=== PATIENT | male | born 1995 | race African-American/Black ===

== ENCOUNTER 2018-04-10 12:14 | Emergency (ER) | payer OTHER ==
[2018-04-10 12:19] VITALS: BMI 26.5
--- NOTE | 2018-04-10 12:47 | PDOC ---
History of Present Illness - History of Present Illness Initial Comments: 22 year old male with no PMH presenting with chest pain since yesterday evening. Describes the chest pain as left sided pressure , 4/10 in severity, non -pleuritic, non-exertional, non radiating, and worse with laying down. States that he had this 04/10/18 13:39 <IsaakAnthonyiris - Last Filed: 04/10/18 13:25> <Bert Garcia - Last Filed: 04/10/18 15:46> - General Chief Complaint: Shortness of Breath Stated Complaint: SOB Time Seen by Provider: 04/10/18 12:47 Past History - Past Medical History COPD: No - Suicide/Smoking/Psychosocial Hx Smoking History: Never smoked <Shwetha Mulligan - Last Filed: 04/10/18 13:25> <Bert Garcia - Last Filed: 04/10/18 15:46> - Past Medical History Allergies/Adverse Reactions: Allergies Allergy/AdvReac Type Severity Reaction Status Date / Time No Known Allergies Allergy Verified 04/10/18 12:19 *Physical Exam - Vital Signs Last Vital Signs Temp Pulse Resp BP Pulse Ox 98.3 F 74 18 128/76 99 04/10/18 12:16 04/10/18 12:16 04/10/18 12:16 04/10/18 12:16 04/10/18 12:16 <IsaakAnthonyiris - Last Filed: 04/10/18 13:25> - Vital Signs Last Vital Signs Temp Pulse Resp BP Pulse Ox 98.3 F 74 18 128/76 100 04/10/18 12:16 04/10/18 12:16 04/10/18 12:16 04/10/18 12:16 04/10/18 13:15 <Bert Garcia - Last Filed: 04/10/18 15:46> ED Treatment Course - LABORATORY CBC & Chemistry Diagram: 04/10/18 13:15 04/10/18 13:15 - ADDITIONAL ORDERS Additional order review: Laboratory Results 04/10/18 13:15 Sodium 141 Potassium 4.1 Chloride 107 Carbon Dioxide 27 Anion Gap 7 L BUN 13 Creatinine 1.2 Creat Clearance w eGFR > 60 Random Glucose 81 Calcium 9.0 Total Bilirubin 0.5 AST 39 H ALT 31 Alkaline Phosphatase 88 Creatine Kinase 840 H Creatine Kinase Index 0.0 CK-MB (CK-2) 0.80 Troponin I < 0.02 Total Protein 7.1 Albumin 4.0 04/10/18 13:15 RBC 5.64 H MCV 84.2 MCHC 33.8 RDW 13.2 MPV 9.8 Neutrophils % 69.0 Lymphocytes % 23.6 Monocytes % 5.9 Eosinophils % 0.8 Basophils % 0.7 <Bert Garcia - Last Filed: 04/10/18 15:46> *DC/Admit/Observation/Transfer <Shwetha Mulligan - Last Filed: 04/10/18 13:25> <Bert Garcia - Last Filed: 04/10/18 15:46> Diagnosis at time of Disposition: Atypical chest pain - Discharge Dispostion Disposition: HOME - Referrals Referrals: ON STAFF,NOT [Primary Care Provider] - - Patient Instructions Printed Discharge Instructions: DI for Atypical Chest Pain Additional Instructions: Follow up with your primary care doctor within 1 week. You may need a referral for a messaging architect for further work up of your chest pain. If you experience worsening chest pain, shortness of breath, or any other concerning symptoms, return to the ER immediately. - Post Discharge Activity
[2018-04-10 13:53] LABS: BASO % 0.7 % (0-2.0); EOS % 0.8 % (0-4.5); HEMATOCRIT 47.5 % (35.4-49); HEMOGLOBIN 16.1 GM/dL (11.7-16.9); LYMPH % 23.6 % (8-40); MCH 28.5 pg (25.7-33.7); MCHC 33.8 g/dl (32.0-35.9); MEAN CELL VOLUME 84.2 fl (80-96); MEAN PLT VOLUME 9.8 fl (7.5-11.1); MONO % 5.9 % (3.8-10.2); PLATELET COUNT 164 K/MM3 (134-434); RBC 5.64 M/mm3 (4.00-5.60); RDW 13.2 % (11.9-15.9); WHITE BLOOD COUNT 9.1 K/mm3 (4.0-10.0)
[2018-04-10 14:17] LABS: CHLORIDE 107 mmol/L (98-107); SODIUM 141 mmol/L (136-145)
[2018-04-10 14:25] LABS: ANION GAP 7 (8-16); BILIRUBIN,TOTAL 0.5 mg/dL (0.2-1.0); BLOOD UREA NITROGEN 13 mg/dL (7-18); CO2 27 mmol/L (21-32); CREATININE 1.2 mg/dL (0.7-1.3); GLUCOSE,RANDOM 81 mg/dL (74-106); SGPT/ALT 31 U/L (12-78); TOT PROT 7.1 g/dl (6.4-8.2)
[2018-04-10 14:27] LABS: ALK PHOS 88 U/L (45-117)
[2018-04-10 14:28] LABS: SGOT/AST 39 U/L (15-37)
[2018-04-10 14:29] LABS: POTASSIUM 4.1 mmol/L (3.5-5.1)
--- NOTE | 2018-04-10 15:46 | PDOC ---
Attending Attestation - Resident Resident Name: Shwetha Mulligan - ED Attending Attestation I have performed the following: I have examined & evaluated the patient, The case was reviewed & discussed with the resident, I agree w/resident's findings & plan, Exceptions are as noted - HPI HPI: 04/10/18 15:41 "The patient is a 22-year-old male, with no past medical history, who presents to the ED with shortness of breath and chest pain that began yesterday. He describes the pain as constant, 4/10 in severity, nonradiating. He states that it was most pronounced as he was lying down to sleep. Pt feels better with sitting up and walking, and he states that he currently has no symptoms. Pt denies F/C. Denies recent illness. Denies drug use. Pt states that he just had a very stressful semester at school and just finished his exams. The patient states he was recently diagnosed with rhabdomyolysis 3 days ago at [facility]. The patient denies any fever, chills, nausea, vomiting, diarrhea, or abdominal pain. Allergies: NKA " - Physicial Exam PE: 04/10/18 15:42 "GENERAL: Awake, alert, and fully oriented, in no acute distress. HEAD: No signs of trauma EYES: PERRLA, EOMI, sclera anicteric, conjunctiva clear ENT: Auricles normal inspection, hearing grossly normal, nares patent, oropharynx clear without exudates. Moist mucosa NECK: Nontender, no stepoffs, Normal ROM, supple, no lymphadenopathy, JVD, or masses LUNGS: Breath sounds equal, clear to auscultation bilaterally. No wheezes, and no crackles HEART: Regular rate and rhythm, normal S1 and S2, no murmurs, rubs or gallops ABDOMEN: Soft, nontender, normoactive bowel sounds. No guarding, no rebound. No masses EXTREMITIES: Normal range of motion, no edema. No clubbing or cyanosis. No cords, erythema, or tenderness NEUROLOGICAL: Cranial nerves II through XII intact. 5/5 strength and sensation in all extremities, Normal speech, normal gait, normal cerebellar function SKIN: Warm, Dry, normal turgor, no rashes or lesions noted." - Medical Decision Making 04/10/18 15:45 22 M with atypical chest pain and SOB, now resolved. Pt with no EKG abnormalities. PERC score 0. Likely anxiety vs stress related. - Labs, trop - CXR 04/10/18 15:53 Labs wnl, trop negative, CK mildly elevated, consistent with recent h/o rhabdo CXR clear Pt is well appearing, with normal vitals. Clinically stable for DC at this time. I discussed the physical exam findings, ancillary test results and final diagnoses with the patient. I answered all of the patient's questions. The patient was satisfied with the care received and felt comfortable with the discharge plan and treatment plan. The patient agrees to follow up with the primary care physician within 24-72 hours. Heart Score/ECG Review - History History: Slightly suspicious - Electrocardiogram EKG: Normal - Age Age: </= 45 - Troponin Troponin: </= normal limit - ECG Impressions Comment:: 04/10/18 15:45 NSR, no GARY/STDs, no TWIs, axis wnl, intervals, rate 62
[2018-04-10 16:05] VITALS: BP 129/71; PULSE 63; TEMP 98
--- NOTE | 2018-04-11 10:18 | EKG ---
Test Reason : Blood Pressure : / mmHG Vent. Rate : 062 BPM Atrial Rate : 062 BPM P-R Int : 140 ms QRS Dur : 100 ms QT Int : 396 ms P-R-T Axes : 041 034 038 degrees QTc Int : 401 ms NORMAL SINUS RHYTHM NORMAL ECG NO PREVIOUS ECGS AVAILABLE Confirmed by RAHAT FREDERICK MD ([id number]) on 04/11/2018 10:18:43 AM Referred By: Confirmed By:RAHAT FREDERICK MD
== END 2018-04-10 16:07 | disposition home or self-care (01) ==
LOC: JER 12:14
DX: R07.89 Other chest pain (principal)
CPT/HCPCS: 36415; 71046-TC-FY; 80053; 82550; 82553; 84484; 85025; 93005; 93010; 99285-25

== ENCOUNTER 2019-09-27 08:57 | Emergency (ER) | payer OTHER ==
[2019-09-27 09:06] VITALS: BMI 31.4
--- NOTE | 2019-09-27 09:21 | PDOC ---
History of Present Illness - General Chief Complaint: Pain, Acute Stated Complaint: ABD. PAIN Time Seen by Provider: 09/27/19 09:10 - History of Present Illness Initial Comments: 09/27/19 09:16 CHIEF COMPLAINT: RLQ pain HISTORY OF PRESENT ILLNESS: 24 yo M with no PMH presents to ED with RLQ pain x 3 days. Patient reports the pain was worse at the onset and is a 3/10. He also reports that the pain is worsened when lying down. He denies any self treatment. Patient does endorse feeling constipated recently but did have a bowel movement this morning. Patient denies any fevers, nausea, vomiting, diarrhea, rectal bleeding, dysuria, urinary frequency, hematuria. PCP: Dr. De Paz No recent travel or sick contacts. PAST MEDICAL HISTORY: Denies past medical history FAMILY HISTORY: Denies SOCIAL HISTORY: Denies tobacco, alcohol, illicit drug use. SURGICAL HISTORY: Denies ALLERGIES: No known drug allergies REVIEW OF SYSTEMS General/Constitutional: Denies fever or chills. Denies weakness, weight change. HEENT: Denies change in vision. Denies ear pain or discharge. Denies sore throat. Cardiovascular: Denies chest pain or shortness of breath. Respiratory: Denies cough, wheezing, or hemoptysis. Gastrointestinal: RLQ pain x 3 days. Denies nausea, vomiting, diarrhea or constipation. Denies rectal bleeding. Genitourinary: Denies dysuria, frequency, or change in urination. Musculoskeletal: Denies joint or muscle swelling or pain. Denies neck or back pain. Skin and breasts: Denies rash or easy bruising. Neurologic: Denies headache, vertigo, loss of consciousness, or loss of sensation. Psychiatric: Denies depression or anxiety. PHYSICAL EXAM General Appearance: Well-appearing, appropriately dressed. No apparent distress. HEENT: EOMI, PERRLA, normal ENT inspection, normal voice, TMs normal, pharynx normal. No conjunctival pallor. No photophobia, scleral icterus. Neck: Supple. Trachea midline. No tenderness, rigidity, carotid bruit, stridor , lymphadenopathy, or thyromegaly. Respiratory/Chest: Lungs CTAB. No shortness of breath, chest tenderness, respiratory distress, accessory muscle use. No crackles, rales, rhonchi, stridor , wheezing, dullness Cardiovascular: RRR. S1, S2. No JVD, murmur, bradycardia, tachycardia. Gastrointestinal/Abdominal: RLQ tenderness. Abdomen soft, non-distended. No organomegaly, pulsatile mass, guarding, hernia, hepatomegaly, splenomegaly. Musculoskeletal/Extremities: Normal inspection. FROM of all extremities, normal capillary refill. Pelvis Stable. No CVA tenderness. No tenderness to extremities, pedal edema, swelling, erythema or deformity. Integumentary: Appropriate color, dry, warm. No cyanosis, erythema, jaundice or rash Neurologic: school commissioner II-XII intact. Fully oriented, alert. Appropriate mood/affect. Motor strength 5/5. No appreciable EOM palsy, facial droop or sensory deficit. 09/27/19 11:20 Past History - Past Medical History Allergies/Adverse Reactions: Allergies Allergy/AdvReac Type Severity Reaction Status Date / Time No Known Allergies Allergy Verified 04/10/18 12:19 Home Medications: Ambulatory Orders Bacillus Coagulans [Probiotic] 1 each PO DAILY #30 capsule. 09/27/19 Ciprofloxacin HCl [Cipro] 500 mg PO BID #20 tablet 09/27/19 Metronidazole [Flagyl] 500 mg PO TID #30 capsule 09/27/19 COPD: No - Immunization History Immunization Up to Date: No - Psycho Social/Smoking Cessation Hx Smoking History: Never smoked Have you smoked in the past 12 months: No Information on smoking cessation initiated: No Hx Alcohol Use: No Drug/Substance Use Hx: No *Physical Exam - Vital Signs Last Vital Signs Temp Pulse Resp BP Pulse Ox 98.4 F 89 18 115/68 100 09/27/19 09:00 09/27/19 09:00 09/27/19 09:00 09/27/19 09:00 09/27/19 09:00 ED Treatment Course - LABORATORY CBC & Chemistry Diagram: 09/27/19 09:30 09/27/19 09:30 Medical Decision Making - Medical Decision Making 09/27/19 09:21 24 yo M with no PMH presents to ED with RLQ pain x 3 days. -labs -US 09/27/19 14:58 US suspicious of appy. Discussed case with on-call surgeon MD Mi. CT ordered. CT without signs of acute appy, suggestive of enteritis. Will dc to home on po abx and close GI follow up. -cipro -flagyl Advised patient to take medication as prescribed and follow up with GI within the next week. Advised patient of signs and symptoms for return to ED. Patient and mother verbalized understanding and agree to plan. Discharge - Discharge Information Problems reviewed: Yes Clinical Impression/Diagnosis: Enteritis Condition: Stable Disposition: HOME - Admission No - Additional Discharge Information Prescriptions: Bacillus Coagulans [Probiotic] 1 each PO DAILY #30 capsule. Ciprofloxacin HCl [Cipro] 500 mg PO BID #20 tablet Metronidazole [Flagyl] 500 mg PO TID #30 capsule - Follow up/Referral Referrals: Felicity Bustos MD [Staff Physician] - - Patient Discharge Instructions Patient Printed Discharge Instructions: DI for Enteritis Additional Instructions: Please take medications as prescribed. Follow up with GI in one week for continued monitoring of your symptoms. If you develop any worsening symptoms, please return to the ER. - Post Discharge Activity Work/Back to School Note: Back to School
[2019-09-27 09:50] LABS: BASO % 0.8 % (0-2.0); EOS % 1.6 % (0-4.5); HEMATOCRIT 48.6 % (35.4-49); HEMOGLOBIN 16.1 GM/dL (11.7-16.9); LYMPH % 31.2 % (8-40); MCH 28.5 pg (25.7-33.7); MCHC 33.2 g/dl (32.0-35.9); MEAN PLT VOLUME 9.5 fl (7.5-11.1); MONO % 5.7 % (3.8-10.2); NEUT % 60.7 % (42.8-82.8); PLATELET COUNT 167 K/MM3 (134-434); RBC 5.65 M/mm3 (4.00-5.60); RDW 13.6 % (11.9-15.9); WHITE BLOOD COUNT 6.2 K/mm3 (4.0-10.0)
[2019-09-27 09:54] LABS: EPI CELLS 0.1 /HPF (0-5/HPF); HYALINE CASTS 0 /lpf (0-8); PH,URINE 6.5 (5.0-8.0); URINE APPEARANCE CLEAR; URINE BACTERIA 0.5 /hpf (NEGATIVE); URINE BILIRUBIN NEGATIVE (NEGATIVE); URINE COLOR YELLOW; URINE GLUCOSE (UA) NEGATIVE (NEGATIVE); URINE KETONE NEGATIVE (NEGATIVE); URINE LEUK ESTERASE NEGATIVE (NEGATIVE); URINE NITRITE NEGATIVE (NEGATIVE); URINE PROTEIN NEGATIVE (NEGATIVE); URINE RBC 5 /hpf (0-4); URINE UROBILINOGEN 0.2 mg/dL (0.2-1.0); URINE WBC 0 /hpf (0-5)
[2019-09-27 10:19] LABS: ALBUMIN 4.1 g/dl (3.4-5.0); BILIRUBIN,TOTAL 0.4 mg/dL (0.2-1); BLOOD UREA NITROGEN 19.9 mg/dL (7-18); CALCIUM 9.2 mg/dL (8.5-10.1); CREATININE 1.4 mg/dL (0.55-1.3); POTASSIUM 4.6 mmol/L (3.5-5.1); TOT PROT 7.2 g/dl (6.4-8.2)
[2019-09-27] MEDS ORDERED: SODIUM CHLORIDE 0.9% 500 ML INFUS.BAG IV ONE (10:31)
--- NOTE | 2019-09-27 11:25 | PDOC ---
*Physical Exam - Vital Signs Last Vital Signs Temp Pulse Resp BP Pulse Ox 98.4 F 78 18 128/88 98 09/27/19 13:22 09/27/19 13:22 09/27/19 13:22 09/27/19 13:22 09/27/19 13:22 <Ciara Christian - Last Filed: 09/27/19 14:29> - Vital Signs Last Vital Signs Temp Pulse Resp BP Pulse Ox 98.4 F 89 18 115/68 100 09/27/19 09:00 09/27/19 09:00 09/27/19 09:00 09/27/19 09:00 09/27/19 09:00 <Lisha Anton - Last Filed: 09/30/19 17:10> ED Treatment Course - LABORATORY CBC & Chemistry Diagram: 09/27/19 09:30 09/27/19 09:30 - ADDITIONAL ORDERS Additional order review: Laboratory Results 09/27/19 09/27/19 09/27/19 11:30 09:30 09:30 PT with INR 12.30 INR 1.04 Sodium 141 Potassium 4.6 Chloride 107 Carbon Dioxide 32 Anion Gap 3 L BUN 19.9 H Creatinine 1.4 H Est GFR (CKD-EPI)AfAm 80.36 Est GFR (CKD-EPI)NonAf 69.34 Random Glucose 88 Calcium 9.2 Total Bilirubin 0.4 AST 19 ALT 32 Alkaline Phosphatase 99 Total Protein 7.2 Albumin 4.1 Lipase 86 Urine Color Yellow Urine Appearance Clear Urine pH 6.5 Ur Specific [place] 1.023 Urine Protein Negative Urine Glucose (UA) Negative Urine Ketones Negative Urine Blood 1+ H Urine Nitrite Negative Urine Bilirubin Negative Urine Urobilinogen 0.2 Ur Leukocyte Esterase Negative Urine WBC (Auto) 0 Urine RBC (Auto) 5 Urine Casts (Auto) 0 U Epithel Cells (Auto) 0.1 Urine Bacteria (Auto) 0.5 09/27/19 09:30 RBC 5.65 H MCV 86.0 MCHC 33.2 RDW 13.6 MPV 9.5 Neutrophils % 60.7 Lymphocytes % 31.2 D Monocytes % 5.7 Eosinophils % 1.6 D Basophils % 0.8 - RADIOLOGY Radiology Studies Ordered: Category Date Time Status ABDOMEN & PELVIS CT WITH CONTR [CT] Stat CT Scan 09/27/19 11:27 Completed ABDOMEN US [US] Stat Ultrasound 09/27/19 10:33 Completed PELVIS(OTHER) US [US] Stat Ultrasound 09/27/19 09:51 Completed - Medications Given in the ED: ED Medications Discontinued Medications Generic Name Dose Route Start Last Admin Trade Name Freq PRN Reason Stop Dose Admin Sodium Chloride 1,000 ml 09/27/19 10:31 09/27/19 11:21 Normal Saline - IV 09/27/19 10:32 1,000 ml ONCE ONE Administration <Ciara Christian - Last Filed: 09/27/19 14:29> - LABORATORY CBC & Chemistry Diagram: 09/27/19 09:30 09/27/19 09:30 - ADDITIONAL ORDERS Additional order review: Laboratory Results 09/27/19 09/27/19 09:30 09:30 Sodium 141 Potassium 4.6 Chloride 107 Carbon Dioxide 32 Anion Gap 3 L BUN 19.9 H Creatinine 1.4 H Est GFR (CKD-EPI)AfAm 80.36 Est GFR (CKD-EPI)NonAf 69.34 Random Glucose 88 Calcium 9.2 Total Bilirubin 0.4 AST 19 ALT 32 Alkaline Phosphatase 99 Total Protein 7.2 Albumin 4.1 Lipase 86 Urine Color Yellow Urine Appearance Clear Urine pH 6.5 Ur Specific [place] 1.023 Urine Protein Negative Urine Glucose (UA) Negative Urine Ketones Negative Urine Blood 1+ H Urine Nitrite Negative Urine Bilirubin Negative Urine Urobilinogen 0.2 Ur Leukocyte Esterase Negative Urine WBC (Auto) 0 Urine RBC (Auto) 5 Urine Casts (Auto) 0 U Epithel Cells (Auto) 0.1 Urine Bacteria (Auto) 0.5 09/27/19 09:30 RBC 5.65 H MCV 86.0 MCHC 33.2 RDW 13.6 MPV 9.5 Neutrophils % 60.7 Lymphocytes % 31.2 D Monocytes % 5.7 Eosinophils % 1.6 D Basophils % 0.8 - Medications Given in the ED: ED Medications Discontinued Medications Generic Name Dose Route Start Last Admin Trade Name Freq PRN Reason Stop Dose Admin Sodium Chloride 1,000 ml 09/27/19 10:31 09/27/19 11:21 Normal Saline - IV 09/27/19 10:32 1,000 ml ONCE ONE Administration <Lisha Anton - Last Filed: 09/30/19 17:10> Medical Decision Making - Medical Decision Making 09/27/19 11:24 24-year-old male presenting to the emergency department with a complaint of right lower quadrant pain which is been present for the past 3 days 09/27/19 11:24 Laboratory Tests 09/27/19 09/27/19 09/27/19 09:30 09:30 09:30 WBC 6.2 Hgb 16.1 Hct 48.6 Plt Count 167 Neutrophils % 60.7 Lymphocytes % 31.2 D BUN 19.9 H Creatinine 1.4 H Urine Blood 1+ H Urine Nitrite Negative Ur Leukocyte Esterase Negative Urine WBC (Auto) 0 Urine RBC (Auto) 5 09/27/19 11:25 Ultrasound suggestive of acute appendicitis Pt seen by Midlevel Provider under my direct supervision Pt interviewed and examined Agree with ANIVAL exam CT ordered CT reveals no evidence of Appendicitis I agree with plan as outlined by Midlevel Provider <Lisha Anton - Last Filed: 09/30/19 17:10> Discharge - Discharge Information Problems reviewed: Yes - Admission No <Ciara Christian - Last Filed: 09/27/19 14:29> <Lisha Anton - Last Filed: 09/30/19 17:10> - Discharge Information Clinical Impression/Diagnosis: Enteritis Condition: Stable Disposition: HOME - Additional Discharge Information Prescriptions: Bacillus Coagulans [Probiotic] 1 each PO DAILY #30 capsule. Ciprofloxacin HCl [Cipro] 500 mg PO BID #20 tablet Metronidazole [Flagyl] 500 mg PO TID #30 capsule - Follow up/Referral Referrals: Felicity Bustos MD [Staff Physician] - - Patient Discharge Instructions Patient Printed Discharge Instructions: DI for Enteritis Additional Instructions: Please take medications as prescribed. Follow up with GI in one week for continued monitoring of your symptoms. If you develop any worsening symptoms, please return to the ER. - Post Discharge Activity Work/Back to School Note: Back to School
[2019-09-27 12:08] LABS: INR 1.04 (0.83-1.09); PROTHROMBIN TIME (PATIENT) 12.3 SEC (9.7-13.0)
[2019-09-27] MEDS ORDERED: ONDANSETRON 4 MG/2 ML VIAL IVPUSH PRN (13:56)
[2019-09-27] MEDS ORDERED: LACTATED RINGERS SOLUTION 1,000 ML IV SCH (14:00)
[2019-09-27] MEDS ORDERED: BENZOIN/ALOE VERA/STORAX/TOLU 58 ML BOTTLE ONE (14:04)
[2019-09-27 15:04] VITALS: BP 126/77; PULSE 80; TEMP 98.1
--- NOTE | 2019-09-27 16:31 | CONSULT ---
- Consultation REQUESTING PROVIDER: Anahi BERNAL CONSULT REQUEST: We have been asked to surgically evaluate this patient for possible appendicitis. PCP: HISTORY OF PRESENT ILLNESS: CTSP earlier today w/ 3 days of RLQ abdominal pain w /o other c/o; he came to the ED for evaluation where the pain was improving; he denied any other GI/ c/o; pain started and was localized to the RLQ; he stated is was cramplike and as if he could not move his bowels PMHx: none PSHx: none Home Medications Medication Instructions Recorded Bacillus Coagulans [Probiotic] 1 each PO DAILY #30 capsule. 09/27/19 Ciprofloxacin HCl [Cipro] 500 mg PO BID #20 tablet 09/27/19 Metronidazole [Flagyl] 500 mg PO TID #30 capsule 09/27/19 Allergies Allergy/AdvReac Type Severity Reaction Status Date / Time No Known Allergies Allergy Verified 04/10/18 12:19 REVIEW OF SYSTEMS: CONSTITUTIONAL: Absent: fever, chills, diaphoresis, generalized weakness, malaise, loss of appetite, weight change CARDIOVASCULAR: Absent: chest pain, syncope, palpitations, irregular heart rate, lightheadedness , peripheral edema RESPIRATORY: Absent: cough, shortness of breath, dyspnea with exertion, wheezing, stridor, hemoptysis GASTROINTESTINAL: Absent: abdominal pain, abdominal distension, nausea, vomiting, diarrhea, constipation, melena, hematochezia GENITOURINARY: Absent: dysuria, frequency, urgency, hesitancy, hematuria, flank pain, genital pain MUSCULOSKELETAL: Absent: myalgia, arthralgia, joint swelling, back pain, neck pain SKIN: Absent: rash, itching, pallor HEMATOLOGIC/IMMUNOLOGIC: Absent: easy bleeding, easy bruising, lymphadenopathy NEUROLOGIC: Absent: headache, focal weakness, paresthesias, dizziness, unsteady gait, seizure, mental status changes, bladder or bowel incontinence PSYCHIATRIC: Absent: anxiety, depression, suicidal or homicidal ideation, hallucinations. PHYSICAL EXAM: Examined at the completion of the CT scan in the Radiology Department GENERAL: Awake, alert, and fully oriented, in no acute distress. HEAD: Normal with no signs of trauma. EYES: PERRL, sclera anicteric, conjunctiva clear. NECK: Normal ROM, supple without lymphadenopathy, JVD, or masses. ABDOMEN: Soft, nontender, not distended, normoactive bowel sounds, no guarding, no rebound, no masses. No organomegaly. No hernias; no Rovsings; psoas; or obturator signs; no evidence of an acute surgical abdomen. MUSCULOSKELETAL: Normal ROM at all joints. No bony deformities or tenderness. No CVA tenderness. UPPER EXTREMITIES: 2+ pulses, warm, well-perfused. No cyanosis. Cap refill <2 seconds. No peripheral edema. LOWER EXTREMITIES: 2+ pulses, warm, well-perfused. No calf tenderness. No peripheral edema. NEUROLOGICAL: Normal speech, gait not observed. PSYCH: Cooperative. Good eye contact. Appropriate mood and affect. SKIN: Warm, dry, normal turgor, no rashes or lesions noted. Vital Signs Temperature 98.1 F 09/27/19 15:00 Pulse Rate 80 09/27/19 15:00 Respiratory Rate 18 09/27/19 15:00 Blood Pressure 126/77 09/27/19 15:00 O2 Sat by Pulse Oximetry (%) 98 09/27/19 15:00 Lab Results WBC 6.2 K/mm3 (4.0-10.0) 09/27/19 09:30 RBC 5.65 M/mm3 (4.00-5.60) H 09/27/19 09:30 Hgb 16.1 GM/dL (11.7-16.9) 09/27/19 09:30 Hct 48.6 % (35.4-49) 09/27/19 09:30 MCV 86.0 fl (80-96) 09/27/19 09:30 MCHC 33.2 g/dl (32.0-35.9) 09/27/19 09:30 RDW 13.6 % (11.9-15.9) 09/27/19 09:30 Plt Count 167 K/MM3 (134-434) 09/27/19 09:30 Sodium 141 mmol/L (136-145) 09/27/19 09:30 Potassium 4.6 mmol/L (3.5-5.1) 09/27/19 09:30 Chloride 107 mmol/L (98-107) 09/27/19 09:30 Carbon Dioxide 32 mmol/L (21-32) 09/27/19 09:30 Anion Gap 3 MMOL/L (8-16) L 09/27/19 09:30 BUN 19.9 mg/dL (7-18) H 09/27/19 09:30 Creatinine 1.4 mg/dL (0.55-1.3) H 09/27/19 09:30 Random Glucose 88 mg/dL (74-106) 09/27/19 09:30 Calcium 9.2 mg/dL (8.5-10.1) 09/27/19 09:30 Blood Type A NEGATIVE 09/27/19 11:30 Antibody Screen Negative 09/27/19 11:30 INR 1.04 (0.83-1.09) 09/27/19 11:[address] reviewed. IMP: no evidence of an acute surgical abdomen; specifically no acute appendicitis; PLAN: When originally consulted I suggested the CT a/p; findings c/w enteritis and/or IBD; plan as per ED team. Bert Mi MD FACS.
== END 2019-09-27 15:00 | disposition home or self-care (01) ==
LOC: JER 08:57 → JASUSAT 11:54 → JER 15:00
PROC: 3E0337Z Introduction of Electrolytic and Water Balance Substance into Peripheral Vein, Percutaneous Approach (ICD-10-PCS; principal; 2019-09-27)
DX: K52.9 Noninfective gastroenteritis and colitis, unspecified (principal)
CPT/HCPCS: 36415; 74177-TC; 76700-TC; 76856-TC; 80053; 81003; 83690; 85025; 85610; 86850; 86900; 86901; 86902; 87086; 96360; 99283-25; Q9967

== ENCOUNTER 2019-11-16 14:38 | Emergency (ER) | payer OTHER ==
[2019-11-16 14:45] VITALS: BP 103/71; PULSE 89; TEMP 98.6; BMI 27.9
--- NOTE | 2019-11-16 14:45 | PDOC ---
Rapid Medical Evaluation Time Seen by Provider: 11/16/19 14:43 Medical Evaluation: Allergies Allergy/AdvReac Type Severity Reaction Status Date / Time No Known Allergies Allergy Verified 04/10/18 12:19 11/16/19 14:43 I have performed a brief in-person evaluation of this patient. The patient presents with a chief complaint of: recent hx of enteritis. LUQ pain since last night, one episode of vomiting. Last BM one hour ago and was normal. denies fevers Pertinent physical exam findings: nontender exam I have ordered the following: nothing The patient will proceed to the ED for further evaluation.
[2019-11-16] MEDS ORDERED: FAMOTIDINE 20 MG/50 ML IVPB 20 MG/50 ML MG IVPB ONE ×2 (15:40→15:58)
[2019-11-16] MEDS ORDERED: MAG HYDROX/AL HYDROX/SIMETH 30 ML UNIT-DOSE CUP PO ONE (15:40)
[2019-11-16] MEDS ORDERED: SODIUM CHLORIDE 0.9% 500 ML INFUS.BAG IV ONE (15:42)
--- NOTE | 2019-11-16 15:47 | PDOC ---
History of Present Illness - General Chief Complaint: Pain, Acute Stated Complaint: ABD PAIN Time Seen by Provider: 11/16/19 14:43 History Source: Patient Exam Limitations: No Limitations - History of Present Illness Initial Comments: 11/16/19 15:42 24-year-old healthy male seen at this ED mid-September for enteritis after being ruled out for appendicitis. At that time was treated with p.o. antibiotics which he completed. Presents today complaining of mid epigastric abdominal cramping x3 days with one episode of vomiting last night. Reports feeling empty sensation approximately 1 hour after eating. Reports cough, sore throat, body aches 5 days ago which have resolved. Denies recent travel, rash, sick contacts, fever, chills, urinary complaints, changes in stool color, alcohol use or drug use. Able to tolerate p.o. ROS: GENERAL/CONSTITUTIONAL: No fever, chills, weakness, dizziness HEAD, EYES, EARS, NOSE AND THROAT: No changes in vision, No ear pain or discharge, No sore throat CARDIOVASCULAR: No chest pain RESPIRATORY: No shortness of breath or cough GASTROINTESTINAL: Abdominal cramping, one episode of vomiting, denies nausea, diarrhea or constipation GENITOURINARY: No dysuria MUSCULOSKELETAL: No neck or back pain SKIN: No rash NEUROLOGIC: No headache, vertigo, loss of consciousness, or loss of sensation PE: GENERAL: well-appearing, NAD HEAD: NCAT EYES: Pupils equal, round and reactive to light, sclera anicteric, conjunctiva clear ENT: pharynx: no erythema, no exudate, uvula midline NECK: supple CHEST: nontender RESP: clear, no w/r/r CARDIO: rrr, no m/g/r ABD: +BS, soft, nontender, non distended BACK: no midline spinal ttp, no CVAT EXTREMITIES: Normal range of motion, no edema NEUROLOGICAL: Normal speech, normal gait SKIN: Warm, Dry Is this a multiple visit Asthma Patient?: No Past History - Past Medical History Allergies/Adverse Reactions: Allergies Allergy/AdvReac Type Severity Reaction Status Date / Time No Known Allergies Allergy Verified 04/10/18 12:19 Home Medications: Ambulatory Orders Bacillus Coagulans [Probiotic] 1 each PO DAILY #30 capsule. 09/27/19 Ciprofloxacin HCl [Cipro] 500 mg PO BID #20 tablet 09/27/19 Metronidazole [Flagyl] 500 mg PO TID #30 capsule 09/27/19 COPD: No - Immunization History Immunization Up to Date: No - Psycho Social/Smoking Cessation Hx Smoking History: Never smoked Have you smoked in the past 12 months: No Information on smoking cessation initiated: No Hx Alcohol Use: No Drug/Substance Use Hx: No *Physical Exam - Vital Signs Last Vital Signs Temp Pulse Resp BP Pulse Ox 98.6 F 89 18 103/71 99 11/16/19 14:43 11/16/19 14:43 11/16/19 14:43 11/16/19 14:43 11/16/19 14:43 Medical Decision Making - Medical Decision Making 11/16/19 15:45 24-year-old healthy male seen at this ED mid-September for enteritis after being ruled out for appendicitis. At that time was treated with p.o. antibiotics which he completed. Presents today complaining of mid epigastric abdominal cramping x3 days with one episode of vomiting last night. Reports feeling empty sensation approximately 1 hour after eating. Reports cough, sore throat, body aches 5 days ago which have resolved. Denies recent travel, rash, sick contacts, fever, chills, urinary complaints, changes in stool color, alcohol use or drug use. Able to tolerate p.o. Patient has not followed up with GI given his school schedule. Labs P.o. Maalox IV Pepcid IV fluids Reassess Discharge - Discharge Information Problems reviewed: Yes Clinical Impression/Diagnosis: Abdominal pain Qualifiers: Abdominal location: epigastric Qualified Code(s): R10.13 - Epigastric pain Condition: Stable - Admission No - Follow up/Referral Referrals: Baldev Ashby MD [Primary Care Provider] - - Patient Discharge Instructions - Post Discharge Activity
[2019-11-16] MEDS ORDERED: MAG HYDROX/AL HYDROX/SIMETH 30 ML UNIT-DOSE CUP ONE (15:58)
[2019-11-16 16:18] LABS: BASO % 0.3 % (0-2.0); EOS % 2.6 % (0-4.5); HEMATOCRIT 48.6 % (35.4-49); HEMOGLOBIN 16.1 GM/dL (11.7-16.9); MCH 28.3 pg (25.7-33.7); MCHC 33.1 g/dl (32.0-35.9); MEAN CELL VOLUME 85.3 fl (80-96); MEAN PLT VOLUME 9.2 fl (7.5-11.1); MONO % 5.3 % (3.8-10.2); NEUT % 72.8 % (42.8-82.8); PLATELET COUNT 204 K/MM3 (134-434); RDW 13.3 % (11.9-15.9); WHITE BLOOD COUNT 10.3 K/mm3 (4.0-10.0)
--- NOTE | 2019-11-16 16:46 | PDOC ---
*Physical Exam - Vital Signs Last Vital Signs Temp Pulse Resp BP Pulse Ox 98.6 F 89 18 103/71 99 11/16/19 14:43 11/16/19 14:43 11/16/19 14:43 11/16/19 14:43 11/16/19 14:43 - Physical Exam General Appearance: Yes: Nourished, Appropriately Dressed. No: Apparent Distress Gastrointestinal/Abdominal: positive: Normal Bowel Sounds, Tender (discomfort to the epigastric region.), Flat, Soft ED Treatment Course - LABORATORY CBC & Chemistry Diagram: 11/16/19 15:35 11/16/19 15:35 - ADDITIONAL ORDERS Additional order review: 11/16/19 15:35 RBC 5.70 H MCV 85.3 MCHC 33.1 RDW 13.3 MPV 9.2 Neutrophils % 72.8 Lymphocytes % 19.0 D Monocytes % 5.3 Eosinophils % 2.6 Basophils % 0.3 - Medications Given in the ED: ED Medications Discontinued Medications Generic Name Dose Route Start Last Admin Trade Name Freq PRN Reason Stop Dose Admin Al Hydroxide/Mg Hydroxide 30 ml 11/16/19 15:40 11/16/19 16:07 Mylanta Oral Suspension - PO 11/16/19 15:41 30 ml ONCE ONE Administration Famotidine/Sodium Chloride 20 mg in 50 mls @ 100 mls/hr 11/16/19 15:40 11/16/19 16:07 Pepcid 20 Mg Premixed Ivpb - IVPB 11/16/19 16:09 100 mls/hr ONCE ONE Administration Sodium Chloride 1,000 ml 11/16/19 15:42 11/16/19 16:07 Normal Saline - IV 11/16/19 15:43 1,000 ml ONCE ONE Administration Medical Decision Making - Medical Decision Making 11/16/19 17:05 Sign out was received by DOLORES Garcia at 16:00 In brief the patient presents with two days of fevers, chills, cough, vomiting and abdominal pain Abdominal exam is non-concerning. Mild epigastric tenderness Pt pending labs Improvement in symptoms after GI cocktail Re-evaluate 11/16/19 17:34 Lab work grossly unremarkable. We will discharge home with symptomatic relief and primary care follow-up. I discussed the physical exam findings, ancillary test results and final diagnoses with the patient. I answered all of the patient's questions. The patient was satisfied with the care received and felt comfortable with the discharge plan and treatment plan. The Patient agrees to follow up with the primary care physician/specialist within 24-72 hours. Return precautions were given. Discharge - Discharge Information Problems reviewed: Yes Clinical Impression/Diagnosis: Abdominal pain Qualifiers: Abdominal location: epigastric Qualified Code(s): R10.13 - Epigastric pain Condition: Stable - Admission No - Follow up/Referral Referrals: Baldev Ashby MD [Primary Care Provider] - - Patient Discharge Instructions Patient Printed Discharge Instructions: DI for Viral Gastroenteritis -- Adult Additional Instructions: You have abdominal pain and vomiting. This is most likely due to a virus. Please take the Zofran every 8 hours as needed for nausea or vomiting. Please take the Pepcid twice a day to help reduce discomfort from acid in your stomach. Avoid all dairy products until 48 hours after the vomiting/diarrhea has resolved. Eat a bland diet including apple sauce, toast, bananas, and plain rice Drink plenty of fluids including pedialyte, watered down juices and water Follow up with your primary care doctor this week Return to the ED if you develop fevers, abdominal pain, worsening vomiting, or if you have any changes in your symptoms. - Post Discharge Activity Work/Back to School Note: Back to Work
[2019-11-16 17:12] LABS: ALBUMIN 4.1 g/dl (3.4-5.0); BILIRUBIN,TOTAL 0.4 mg/dL (0.2-1); BLOOD UREA NITROGEN 15.5 mg/dL (7-18); CALCIUM 9.3 mg/dL (8.5-10.1); CREATININE 1.2 mg/dL (0.55-1.3); POTASSIUM 4.3 mmol/L (3.5-5.1); TOT PROT 7.5 g/dl (6.4-8.2)
== END 2019-11-16 18:00 | disposition home or self-care (01) ==
LOC: JER 14:38
PROC: 3E033GC Introduction of Other Therapeutic Substance into Peripheral Vein, Percutaneous Approach (ICD-10-PCS; principal; 2019-11-16)
DX: A08.4 Viral intestinal infection, unspecified (principal); B97.89 Other viral agents as the cause of diseases classified elsewhere
CPT/HCPCS: 36415; 80053; 83690; 85025; 96365; 99284-25

== ENCOUNTER 2020-04-18 21:16 | Emergency (ER) | payer OTHER ==
[2020-04-18 21:20] VITALS: BP 148/75; PULSE 78; TEMP 98.2; BMI 27.9
--- NOTE | 2020-04-18 22:10 | PDOC ---
History of Present Illness - General Chief Complaint: Lightheaded Stated Complaint: DIZZINESS - History of Present Illness Initial Comments: 04/18/20 23:06 24yo M w/ 1 similar episode in October p/w lightheadedness upon turning his head x2days. This started yesterday when he was resting on the couch after a five-minute workout of pushups and squats. All of a sudden he felt lightheaded. It self resolved. He states that it now occurs when he turns his head in bed and when he stands up from sitting. Denies fevers, vision changes, ear pain, ringing in ears, vomiting, CP, palpitations, sudden sweating, ABD pain, LOC. He states he had a similar episode of this in October that lasted a few weeks and self-resolved. He did not seek tx/workup for it. Endorses coincident nausea. Denies sick contacts. No allergies No meds no change in appetite. Past History - Medical History Allergies/Adverse Reactions: Allergies Allergy/AdvReac Type Severity Reaction Status Date / Time No Known Allergies Allergy Verified 04/10/18 12:19 Home Medications: Ambulatory Orders Bacillus Coagulans [Probiotic] 1 each PO DAILY #30 capsule. 09/27/19 Ciprofloxacin HCl [Cipro] 500 mg PO BID #20 tablet 09/27/19 Metronidazole [Flagyl] 500 mg PO TID #30 capsule 09/27/19 Famotidine [Pepcid -] 20 mg PO BID #14 tablet 11/16/19 Ondansetron [Zofran Odt -] 4 mg SL TID #10 od.tablet 11/16/19 COPD: No - Immunization History Immunization Up to Date: No - Psycho-Social/Smoking History Smoking History: Never smoked Have you smoked in the past 12 months: No - Substance Abuse Hx (Audit-C & DAST Scrn) How often the patient has a drink containing alcohol: Never Score: In Men: 4 or > Positive; In Women: 3 or > Positive: 0 Screen Result (Pos requires Nsg. Audit-10AR): Negative In the last yr the pt used illegal drug/Rx for NonMed reason: No Score: Yes response is considered Positive: 0 Screen Result (Positive result requires Nsg. DAST-10): Negative Review of Systems - Review of Systems Able to Perform ROS?: Yes Is the patient limited Kazakh proficient: No Constitutional: No: Chills, Fever HEENTM: Yes: Ear Pain. No: Blurred Vision, Recent change in vision, Tinnitus Respiratory: No: Cough, Shortness of Breath Cardiac (ROS): Yes: Lightheadedness. No: Chest Pain, Edema, Irregular Heart Rate, Palpitations, Syncope, Chest Tightness ABD/GI: Yes: Nausea. No: Constipated, Diarrhea, Vomiting : No: Burning, Dysuria, Discharge Musculoskeletal: No: Back Pain, Muscle Pain, Muscle Weakness Integumentary: No: Dryness, Rash, Sweating Neurological: Yes: Dizziness. No: Headache, Numbness, Paresthesia, Seizure, Weakness, Unsteady Gait Psychiatric: No: Anxiety, Depression *Physical Exam - Vital Signs Last Vital Signs Temp Pulse Resp BP Pulse Ox 98.2 F 78 19 148/75 100 04/18/20 21:16 04/18/20 21:16 04/18/20 21:16 04/18/20 21:16 04/18/20 21:16 - Physical Exam General Appearance: Yes: Nourished, Appropriately Dressed. No: Apparent Distress HEENT: positive: EOMI, LEWIS, TMs Normal, Pharynx Normal, Hearing Grossly Normal. negative: Muffled/Hoarse voice, Nasal Congestion, Rhinorrhea, Sinus Tenderness, Lesions, [place] Neck: positive: Trachea midline, Supple Respiratory/Chest: positive: Lungs Clear, Normal Breath Sounds. negative: Chest Tender, Respiratory Distress Cardiovascular: positive: Regular Rhythm, Regular Rate, S1, S2 Gastrointestinal/Abdominal: positive: Normal Bowel Sounds, Soft. negative: Tender Male Genitalia: negative: normal genitalia Musculoskeletal: positive: Normal Inspection Extremity: positive: Normal Inspection Integumentary: positive: Normal Color, Dry, Warm Neurologic: positive: hogshead dumper II-XII NML intact, Fully Oriented, Alert, Normal Mood/Affect, Normal Response, Motor Strength 5/5, Finger to Nose (normal), Other (normal gait. Positive [place]-Hallpike) Discharge - Discharge Information Problems reviewed: Yes Clinical Impression/Diagnosis: Vertigo Condition: Stable Disposition: HOME - Follow up/Referral Referrals: Guido Foote MD [Staff Physician] - Baldev Ashby MD [Primary Care Provider] - - Patient Discharge Instructions Additional Instructions: You were seen in the ED for complaints of dizziness/vertigo In the ED you were evaluated with Evelio Hallpike test which was positive Your results suggested the diagnosis of vertigo There does not appear to be an acute need for immediate hospitalization. You are advised to follow up with your Primary Care Physician within 1 week. You were given a referral to Dr. Foote Return to the ED immediately if you experience worsening dizziness, blurry vision, headaches, fevers, chills nausea, vomiting, chest pain, shortness of breath, abdominal pain. - Post Discharge Activity
--- NOTE | 2020-04-19 00:04 | PDOC ---
*Physical Exam - Vital Signs Last Vital Signs Temp Pulse Resp BP Pulse Ox 98.2 F 78 19 148/75 100 04/18/20 21:16 04/18/20 21:16 04/18/20 21:16 04/18/20 21:16 04/18/20 21:16 - Physical Exam General Appearance: Yes: Appropriately Dressed. No: Apparent Distress HEENT: positive: EOMI, Normal Voice Neck: negative: Tender, Rigid Respiratory/Chest: positive: Normal Breath Sounds. negative: Chest Tender, Respiratory Distress Cardiovascular: positive: Regular Rhythm, Regular Rate, S1, S2. negative: Edema, JVD Gastrointestinal/Abdominal: positive: Normal Bowel Sounds, Flat, Soft. negative: Tender Musculoskeletal: positive: Normal Inspection. negative: CVA Tenderness Extremity: positive: Normal Capillary Refill, Normal Inspection, Normal Range of Motion. negative: Tender Integumentary: positive: Normal Color, Dry, Warm Neurologic: positive: Fully Oriented, Alert, Normal Mood/Affect Medical Decision Making - Medical Decision Making 24 yo male with no significant PMH presented with vertigo symptoms -[place] Hallpike test is positive - EKG ruled out HOCM -Pt is currently asymptomatic and stable for discharge Neuro referral is given Discharge - Discharge Information Problems reviewed: Yes Clinical Impression/Diagnosis: Vertigo Condition: Stable Disposition: HOME - Admission No - Follow up/Referral Referrals: Baldev Ashby MD [Primary Care Provider] - Guido Foote MD [Staff Physician] - - Patient Discharge Instructions Additional Instructions: You were seen in the ED for complaints of dizziness/vertigo In the ED you were evaluated with Evelio Hallpike test which was positive Your results suggested the diagnosis of vertigo There does not appear to be an acute need for immediate hospitalization. You are advised to follow up with your Primary Care Physician within 1 week. You were given a referral to Dr. Foote Return to the ED immediately if you experience worsening dizziness, blurry vision, headaches, fevers, chills nausea, vomiting, chest pain, shortness of breath, abdominal pain. - Post Discharge Activity
--- NOTE | 2020-04-19 00:05 | PDOC ---
Attending Attestation - Resident Resident Name: [facility] - ED Attending Attestation I have performed the following: I have examined & evaluated the patient, The case was reviewed & discussed with the resident, I agree w/resident's findings & plan, Exceptions are as noted - HPI HPI: 04/19/20 00:01 See resident HPI - Physicial Exam PE: 04/19/20 00:01 Agree with documented exam - Medical Decision Making 04/19/20 00:01 Young man with no pmh, no famhx of sudden , syncope, tachydysrythmias, abnormal ekgs, p/w dizziness/lightheadedness symptoms are episodic and triggerable, non-spontaneous, no focal neuro deficits Dizziness likely peripheral cause currently asymptomatic f/u ekg if no arrythmia or other derangement will dc with neurology f/u Discharge - Discharge Information Problems reviewed: Yes Clinical Impression/Diagnosis: Vertigo Condition: Stable Disposition: HOME - Follow up/Referral Referrals: Guido Foote MD [Staff Physician] - Baldev Ashby MD [Primary Care Provider] - - Patient Discharge Instructions Additional Instructions: You were seen in the ED for complaints of dizziness/vertigo In the ED you were evaluated with [place] Hallpike test which was positive Your results suggested the diagnosis of vertigo There does not appear to be an acute need for immediate hospitalization. You are advised to follow up with your Primary Care Physician within 1 week. You were given a referral to Dr. Foote Return to the ED immediately if you experience worsening dizziness, blurry vision, headaches, fevers, chills nausea, vomiting, chest pain, shortness of breath, abdominal pain. - Post Discharge Activity
--- NOTE | 2020-04-19 12:49 | EKG ---
Test Reason : Blood Pressure : / mmHG Vent. Rate : 064 BPM Atrial Rate : 064 BPM P-R Int : 146 ms QRS Dur : 096 ms QT Int : 392 ms P-R-T Axes : 041 020 024 degrees QTc Int : 404 ms NORMAL SINUS RHYTHM NORMAL ECG WHEN COMPARED WITH ECG OF 25-NOV-2019 21:29, NO SIGNIFICANT CHANGE WAS FOUND Confirmed by RAYNA CHAVEZ MD ([id number]) on 04/19/2020 12:48:40 PM Referred By: Confirmed By:RAYNA CHAVEZ MD
== END 2020-04-19 00:57 | disposition home or self-care (01) ==
LOC: JER 21:16
DX: H81.4 Vertigo of central origin (principal)
CPT/HCPCS: 93005; 93010; 99283-25

== ENCOUNTER 2022-01-31 12:01 | Emergency (ER) | payer OTHER ==
[2022-01-31 12:07] VITALS: BP 133/79; PULSE 89; TEMP 98.1; BMI 29.4
[2022-01-31] MEDS ORDERED: METHOCARBAMOL 500 MG TABLET PO ONE (12:35)
[2022-01-31] MEDS ORDERED: METHOCARBAMOL 500 MG TABLET ONE (12:50)
== END 2022-01-31 12:53 | disposition home or self-care (01) ==
LOC: JERFT 12:01
DX: M54.6 Pain in thoracic spine (principal)
CPT/HCPCS: 99283-25

== ENCOUNTER 2023-10-16 19:37 | Emergency (ER) | payer OTHER ==
[2023-10-16 19:48] VITALS: BP 138/86; RESP 18; TEMP 97.9; BMI 29.2
[2023-10-16] MEDS ORDERED: SODIUM CHLORIDE 1,000 ML IV STA (21:31)
[2023-10-16 21:48] LABS: BASO % 0.2 % (0-2.0); EOS % 0.1 % (0-4.5); HEMATOCRIT 45.9 % (35.4-49); HEMOGLOBIN 15.6 GM/dL (11.7-16.9); LYMPH % 9.9 % (8-40); MCH 28.3 pg (25.7-33.7); MEAN CELL VOLUME 83.2 fl (80-96); MEAN PLT VOLUME 8.9 fl (7.5-11.1); MONO % 5.7 % (3.8-10.2); NEUT % 84.1 % (42.8-82.8); PLATELET COUNT 194 10^3/uL (134-434); RBC 5.52 M/mm3 (4.00-5.60); RDW 13.6 % (11.9-15.9); WHITE BLOOD COUNT 16.6 K/mm3 (4.0-10.0)
[2023-10-16 22:03] LABS: POTASSIUM 4.4 mmol/L (3.5-5.1)
[2023-10-16 22:06] LABS: BLOOD UREA NITROGEN 19.9 mg/dL (7-18); CALCIUM 9.4 mg/dL (8.5-10.1); MAGNESIUM 2.2 mg/dL (1.8-2.4)
[2023-10-16 22:09] LABS: CREATININE 1.4 mg/dL (0.55-1.3); PHOSPHOROUS 2.6 mg/dL (2.5-4.9)
[2023-10-16 22:11] LABS: BILIRUBIN,TOTAL 0.4 mg/dL (0.2-1); TOT PROT 7.5 g/dl (6.4-8.2)
[2023-10-16 23:29] VITALS: PULSE 85
== END 2023-10-16 22:46 | disposition home or self-care (01) ==
LOC: JER 19:37
PROC: 3E0337Z Introduction of Electrolytic and Water Balance Substance into Peripheral Vein, Percutaneous Approach (ICD-10-PCS; principal; 2023-10-16)
DX: R42 Dizziness and giddiness (principal); I95.1 Orthostatic hypotension; R53.1 Weakness; R11.0 Nausea; Z20.822 Contact with and (suspected) exposure to COVID-19
CPT/HCPCS: 0241U-QW; 36415; 80053; 83735; 84100; 85025; 93005; 93010; 99284-25

== ENCOUNTER 2023-12-05 22:35 | Emergency (ER) | payer OTHER ==
[2023-12-05 22:40] VITALS: RESP 18; BMI 29.5
[2023-12-05] MEDS: SODIUM CHLORIDE 0.9% 500 ML INFUS.BAG IV ONE (23:41)
[2023-12-05 23:52] LABS: BASO % 0.7 % (0-2.0); EOS % 1.1 % (0-4.5); HEMATOCRIT 44.5 % (35.4-49); LYMPH % 23.5 % (8-40); MCH 28.1 pg (25.7-33.7); MCHC 33.7 g/dl (32.0-35.9); MEAN CELL VOLUME 83.4 fl (80-96); MEAN PLT VOLUME 8.6 fl (7.5-11.1); NEUT % 69.7 % (42.8-82.8); PLATELET COUNT 190 10^3/uL (134-434); RBC 5.33 M/mm3 (4.00-5.60); WHITE BLOOD COUNT 9.7 K/mm3 (4.0-10.0)
[2023-12-06 00:12] LABS: POTASSIUM 3.7 mmol/L (3.5-5.1)
[2023-12-06 00:14] LABS: CALCIUM 8.8 mg/dL (8.5-10.1)
[2023-12-06 00:15] LABS: ALBUMIN 3.6 g/dl (3.4-5.0); BLOOD UREA NITROGEN 22.3 mg/dL (7-18); MAGNESIUM 1.8 mg/dL (1.8-2.4)
[2023-12-06 00:18] LABS: CREATININE 1.5 mg/dL (0.55-1.3)
[2023-12-06 00:20] LABS: BILIRUBIN,TOTAL 0.2 mg/dL (0.2-1); TOT PROT 6.7 g/dl (6.4-8.2)
[2023-12-06 01:07] VITALS: BP 107/70; PULSE 62; TEMP 98.4
[2023-12-06 01:22] LABS: URINE BARBITURATES NEGATIVE (NEGATIVE)
[2023-12-06 01:23] LABS: METHADONE, UR NEGATIVE (NEGATIVE); OPIATES, URI NEGATIVE (NEGATIVE); PHENCYCLIDINE,URINE NEGATIVE (NEGATIVE); URINE BENZODIAZEPINES NEGATIVE (NEGATIVE)
[2023-12-06 01:24] LABS: COCAINE, UR NEGATIVE (NEGATIVE); URINE AMPHETAMINES NEGATIVE (NEGATIVE)
== END 2023-12-06 01:36 | disposition home or self-care (01) ==
LOC: JER 22:35
DX: R00.2 Palpitations (principal); M54.2 Cervicalgia; R25.1 Tremor, unspecified; N18.2 Chronic kidney disease, stage 2 (mild); Z20.822 Contact with and (suspected) exposure to COVID-19
CPT/HCPCS: 0241U-QW; 36415; 71046-TC-FY; 80053; 80307; 82962; 83735; 84439; 84443; 84484; 85025; 93005; 93010; 99285-25

== ENCOUNTER 2023-12-08 20:48 | Emergency (ER) | payer OTHER ==
[2023-12-08 20:58] VITALS: BP 135/89; PULSE 98; RESP 18; TEMP 97.9; BMI 29.5
== END 2023-12-08 21:48 | disposition home or self-care (01) ==
LOC: JER 20:48
DX: R00.2 Palpitations (principal); M54.2 Cervicalgia
CPT/HCPCS: 93005; 93010; 99283-25

== ENCOUNTER 2024-01-08 20:03 | Emergency (ER) | payer OTHER ==
[2024-01-08 20:08] VITALS: BP 144/94; PULSE 93; RESP 18; TEMP 98.1; BMI 29.5
[2024-01-08] MEDS ORDERED: LIDOCAINE 4% PATCH TP ONE (20:55)
[2024-01-08] MEDS ORDERED: KETOROLAC TROMETHAMINE 30 MG/1 ML VIAL ONE (20:55)
[2024-01-08] MEDS: KETOROLAC TROMETHAMINE 30 MG/1 ML VIAL IM ONE (21:00)
[2024-01-08] MEDS: LIDOCAINE 4% PATCH TP ONE (21:00)
[2024-01-08] MEDS ORDERED: LIDOCAINE PATCH REMOVAL MC SCH (22:00)
== END 2024-01-08 21:30 | disposition home or self-care (01) ==
LOC: JER 20:03
PROC: 3E0233Z Introduction of Anti-inflammatory into Muscle, Percutaneous Approach (ICD-10-PCS; principal; 2024-01-08)
DX: S16.1XXA Strain of muscle, fascia and tendon at neck level, initial encounter (principal); R07.9 Chest pain, unspecified; X50.9XXA Other and unspecified overexertion or strenuous movements or postures, initial encounter
CPT/HCPCS: 93005; 93010; 99284-25